=== PATIENT | male | born 1995 | race American Indian/Alaskan Native ===

== ENCOUNTER 2019-09-17 03:51 | Emergency (ER) | payer BC ==
[2019-09-17 04:04] VITALS: BP 110/83
[2019-09-17] MEDS ORDERED: TYLENOL #3 PO ONE (04:32)
--- NOTE | 2019-09-17 04:39 | Emergency Department Report ---
ED Lower Extremity HPI - General Chief Complaint: Extremity Injury, Lower Stated Complaint: RT ANKLE INJURY Time Seen by Provider: 09/17/19 04:17 Source: patient Mode of arrival: Ambulatory Limitations: No Limitations - History of Present Illness Initial Comments: Patient is a 24-year-old male presents emergency room with complaints of an injury to his right ankle that occurred around 9:30 PM. pt states he was playing football and he went make a quick turn and his leg was planted in the grass and he had an inversion injury of his ankle. States initially he was able to ambulate without difficulty but then the pain began to increase. he then noticed swelling to the ankle and foot. Patient denies any numbness or weakness. He denies ever injuring in the past. denies any past medical history. states he has an allergy to naproxen. - Related Data Previous Rx's Medication Instructions Recorded Last Taken Type Acetaminophen/Codeine [Tylenol 1 tab PO Q6H PRN #12 tab 09/17/19 Unknown Rx /Codeine # 3 tab] Allergies Allergy/AdvReac Type Severity Reaction Status Date / Time naproxen [From Aleve] Allergy Hives Verified 09/17/19 04:01 ED Review of Systems ROS: Stated complaint: RT ANKLE INJURY Other details as noted in HPI Comment: All other systems reviewed and negative ED Past Medical Hx - Past Medical History Previous Medical History?: No - Surgical History Past Surgical History?: No - Social History Smoking Status: Current Every Day Smoker Substance Use Type: Alcohol, Marijuana - Medications Home Medications: Home Medications Medication Instructions Recorded Confirmed Last Taken Type Acetaminophen/Codeine [Tylenol 1 tab PO Q6H PRN #12 tab 09/17/19 Unknown Rx /Codeine # 3 tab] ED Physical Exam - General Limitations: No Limitations General appearance: alert, in no apparent distress - Head Head exam: Present: atraumatic, normocephalic - Eye Eye exam: Present: PERRL, EOMI - ENT ENT exam: Present: mucous membranes moist - Extremities Exam Extremities exam: Present: other (TTP over the right, medial anterior ankle, no TTP of the bilateral malleoli, edema present to the medial side of the right an kle and foot, TTP of the right talus, decreased ROM of the right ankle secondary to pain, able to move the toes, no obvious deformity, neurovascularly intact) - Neurological Exam Neurological exam: Present: alert, oriented X3 - Psychiatric Psychiatric exam: Present: normal affect, normal mood - Skin Skin exam: Present: warm, dry, intact ED Course Vital Signs 09/17/19 09/17/19 04:03 05:43 Temperature 98.5 F Pulse Rate 103 H 78 Respiratory 20 16 Rate Blood Pressure 110/83 [Right] O2 Sat by Pulse 100 100 Oximetry ED Lower Extremity MDM - Radiology Data Radiology results: report reviewed RIGHT ANKLE, 3 VIEWS 09/17/2019 INDICATION / CLINICAL INFORMATION: pain and swelling. COMPARISON: None available. FINDINGS: No fracture or dislocation. No skeletal or soft tissue abnormality. Signer Name: Salazar Romero MD Signed: 09/17/2019 4:34 AM Workstation Name: [id number] Transcribed By: ALLISON Dictated By: Salazar Romero MD Electronically Authenticated By: Salazar Romero MD Signed Date/Time: 09/17/19 0434 - Medical Decision Making Patient is a 24-year-old male presents emergency room with complaints of an i njury to his right ankle that occurred around 9:30 PM. pt states he was playing football and he went make a quick turn and his leg was planted in the grass and he had an inversion injury of his ankle. States initially he was able to ambulate without difficulty but then the pain began to increase. he then noticed swelling to the ankle and foot. Patient denies any numbness or weakness. He denies ever injuring in the past. denies any past medical history. states he has an allergy to naproxen. vitals initially with mild tachycardia which improved upon repeat. on exam: TTP over the right, medial anterior ankle, no TTP of the bilateral malleoli, edema present to the medial side of the right ankle and foot, TTP of the right talus, decreased ROM of the right ankle secondary to pain, able to move the toes, no obvious deformity, neurovascularly intact. XR of the right ankle: No fracture or dislocation. No skeletal or soft tissue abnormality. Patient did not drive to the emergency department tonight so pain was treated and improved. Patient placed in ankle stirrup splint and given crutches. No fractures or dislocations on x-ray but could have sprain vs. tendon/ligament injury. pt given prescription for Tylenol with codeine for severe pain. advised pt to please take medication as prescribed as needed. do not drive or operate heavy machinery while taking pain medication. Please fo llow-up with an orthopedic doctor in the next 2-3 days. Please use crutches and do not bear weight on the right leg until you have been cleared by the orthopedic doctor. may use ice, rest, elevation of the leg. Return to the emergency room for any new or worsening symptoms. - Differential Diagnosis strain, sprain, fx, dislocation, tendon/ligament injury Critical care attestation.: If time is entered above; I have spent that time in minutes in the direct care of this critically ill patient, excluding procedure time. ED Disposition Clinical Impression: Right ankle injury Qualifiers: Encounter type: initial encounter Qualified Code(s): S99.911A - Unspecified injury of right ankle, initial encounter Disposition: TO HOME OR SELFCARE Is pt being admited?: No Does the pt Need Aspirin: No Condition: Stable Instructions: Ankle Sprain (ED), Ankle Stirrup Splint (ED), RICE Therapy (ED) Additional Instructions: Please take medication as prescribed as needed. do not drive or operate heavy machinery while taking pain medication. Please follow-up with an orthopedic doctor in the next 2-3 days. Please use crutches and do not bear weight on the right leg until you have been cleared by the orthopedic doctor. may use ice, rest, elevation of the leg. Return to the emergency room for any new or worsening symptoms. Prescriptions: Acetaminophen/Codeine [Tylenol /Codeine # 3 tab] 1 tab PO Q6H PRN #12 tab PRN Reason: Pain , Severe (7-10) Referrals: DAVID RICHARDSON MD [Staff Physician] - 2-3 Days [facility] [Provider Group] - 2-3 Days Forms: Accompanied Note, Work/School Release Form(ED) Time of Disposition: 04:52 Print Language: ESTONIAN
== END 2019-09-17 05:42 | disposition home or self-care (01) ==
LOC: ED 03:51
DX: S99.911A Unspecified injury of right ankle, initial encounter (principal); F17.200 Nicotine dependence, unspecified, uncomplicated; F12.10 Cannabis abuse, uncomplicated; Z88.8 Allergy status to other drugs, medicaments and biological substances; X58.XXXA Exposure to other specified factors, initial encounter; Y93.61 Activity, american tackle football; Y92.89 Other specified places as the place of occurrence of the external cause; Y99.8 Other external cause status